=== PATIENT | female | born 1990 | race African-American/Black ===

== ENCOUNTER 2017-10-18 15:40 | Emergency (ER) | payer OTHER ==
[~2017-10-18] VITALS: Ht 160 cm; Wt 59.3 kg
[2017-10-18 16:11] LABS: HEMATOCRIT 33.1 % (36.0-46.0); HEMOGLOBIN 11.6 G/DL (11.9-15.5); MCH 32.3 PG (29.0-34.0); MCV 92.2 FL (83-99); PLATELET COUNT 197 K/uL (156-360); RBC DIS.WIDTH-CV 11.4 % (11.8-14.6); RBC DIS.WIDTH-SD 39.1 % (39-53); RED BLOOD COUNT 3.59 M/uL (3.80-5.20); WHITE BLOOD COUNT 3.9 K/uL (4.1-10.2)
[2017-10-18 16:19] LABS: ALBUMIN 4.2 g/dL (3.2-4.8); CHLORIDE 106 mEq/L (99-109); POTASSIUM 3.8 mEq/L (3.7-5.4); SODIUM 140 mEq/L (136-147)
[2017-10-18 16:21] LABS: GLUCOSE 95 mg/dL (70-99); TOTAL PROTEIN 7.5 g/dL (6.4-8.3)
[2017-10-18 16:23] LABS: TOTAL BILIRUBIN 0.5 mg/dL (0.0-1.0)
[2017-10-18 16:25] LABS: ALKALINE PHOSPHATASE 46 IU/L (3-129); CREATININE 0.9 mg/dL (0.6-1.3); GFR ESTIMATE (CALCULATED) > 59 mL/min/
[2017-10-18 16:26] LABS: UREA NITROGEN (BUN) 10 mg/dL (9-23)
[2017-10-18 16:27] LABS: AST (GOT) 17 IU/L (2-34)
[2017-10-18 16:28] LABS: ALT (GPT) 20 IU/L (3-49)
[2017-10-18 16:34] LABS: QUANTITATIVE HCG < 4.0 MIU/ML
[2017-10-18] MEDS ORDERED: NORCO 5/3251 TABLET PO (19:16)
[2017-10-18 19:32] VITALS: BP 104/37
== END 2017-10-18 19:34 | disposition home or self-care (01) ==
LOC: EME 15:40
DX: N93.9 Abnormal uterine and vaginal bleeding, unspecified (principal); N83.201 Unspecified ovarian cyst, right side
CPT/HCPCS: 76856; 80053; 81003; 84702; 85027; 99281; 99284